=== PATIENT | male | born 1960 | race Caucasian/White ===

== ENCOUNTER 2017-03-17 05:55 | Day surgery (SDC) | payer OTHER ==
[2017-03-16 09:51] VITALS: BMI 29.4
[2017-03-17] MEDS ORDERED: Phenylephrine 2.5% Opht Soln OS SCH (06:00)
[2017-03-17] MEDS ORDERED: Tetracaine 0.5% Ophth (OR ONLY) ONE (08:10)
[2017-03-17] MEDS ORDERED: Tobramycin/Dexamethasone (Tobradex) Opth Sol (2.5 ml) ONE (08:10)
[2017-03-17] MEDS: Lactated Ringer's 1,000 ML IV ONE (08:24)
[2017-03-17] MEDS: Lactated Ringer's 500 ML IV ONE (08:25)
[2017-03-17] MEDS ORDERED: Propofol 10 mg/ml Inj (20 ML) ONE (08:39)
[2017-03-17] MEDS: Lidocaine 2% Inj (20ml) ONE (08:48)
[2017-03-17] MEDS: Hyaluronidase Human, Recombi 150 U/ML VIAL ONE (08:48)
[2017-03-17] MEDS: MethylPREDNISolone 40 mg Vial ONE (08:55)
[2017-03-17] MEDS: Gentamicin 80 mg/2mL Inj. ONE (09:00)
[2017-03-17] MEDS: Lidocaine 2% w Epi 1:100,000 Inj IJ ONE (09:01)
[2017-03-17] MEDS: Tobramycin/Dexamethasone OPHT OINT ONE (09:03)
[2017-03-17 09:34] VITALS: PULSE 72
[2017-03-17 10:02] LABS: GLUCOSE,POC 130 mg/dL (65-110)
[2017-03-17 11:29] VITALS: BP 132/89; RESP 16; TEMP 98.5; O2SAT 98
--- NOTE | 2017-03-18 21:49 | OP ---
PROCEDURE DATE: 03/17/2017 PREOPERATIVE DIAGNOSIS: Double pterygium, left eye. POSTOPERATIVE DIAGNOSIS: Double pterygium, left eye. PROCEDURES PERFORMED: 1. Pterygium removal. 2. Conjunctival reconstruction with amniotic membrane graft. SURGEON: Vikram Terrell MD TYPE OF ANESTHESIA: Retrobulbar block. COMPLICATIONS: None. DESCRIPTION OF PROCEDURE: The patient was brought to the operating room and properly identified. For anesthesia gave IV sedation and a retrobulbar block was given. The patient was then prepped and draped in the usual sterile fashion. Attention was then turned to the left eye. Sitting superiorly, there was noted to be 2 pterygiums, 1 nasal and 1 temporal onto the cornea. Lidocaine with epinephrine was injected under both pterygiums. Both removed with a 0.12 and Trent scissors. A alexander bur was used for the corneal portion. Hemostasis was maintained with cautery. Once that was complete an autograft was removed from the superior conjunctiva and glued into place. Temporally and nasally amniotic membrane was graft was then cut into the appropriate size and also then glued into place. Subconjunctival antibiotics were then given. Eye was covered by a soft patch and shield.. The patient was returned to the recovery room in stable condition. Vikram Terrell MD
== END 2017-03-17 10:10 | disposition home or self-care (01) ==
LOC: C.SDS 05:55
PROVIDERS: ATTEND Ophthalmology
DX: H11.002 Unspecified pterygium of left eye (principal)

== ENCOUNTER 2017-10-02 16:44 | Emergency (ER) | payer OTHER ==
[2017-10-02 16:44] VITALS: BMI 29.4
[2017-10-02 17:07] VITALS: RESP 20
--- NOTE | 2017-10-02 17:48 | C.PDOC ---
History Of Present Illness Patient is a 57 y/o male who presents to the ED BIBA with daughter s/p slipping and falling down 4 wet steps at 3pm today. Patient was ambulatory at the scene per EMS. Per daughter, patient complains of back, right lateral ribs, right arm , and right leg pain. No other physical complaints at this time. Time Seen by Provider: 10/02/17 17:04 Chief Complaint (Nursing): Back Pain History Per: Patient, EMS, Family (daughter) History/Exam Limitations: no limitations Onset/Duration Of Symptoms: Hrs Current Symptoms Are (Timing): Still Present Quality Of Discomfort: Unable To Describe, "Pain" Previous Symptoms: denies: Neck Pain Associated Symptoms: denies: Incontinence, New Weakness, New Numbness Exacerbating Factor(s): Turning, Movement, Sitting Recent travel outside of the [place]: No Past Medical History Reviewed: Historical Data, Nursing Documentation, Vital Signs Vital Signs: Last Vital Signs Temp 98 F 10/02/17 19:26 Pulse 76 10/02/17 19:26 Resp 20 10/02/17 19:26 BP 151/70 H 10/02/17 19:26 Pulse Ox 99 10/02/17 19:26 - Medical History PMH: Gall Bladder Disease, HTN, Hypercholesterolemia Denies: Chronic Kidney Disease Surgical History: Cholecystectomy Family History: States: No Known Family Hx - Social History Hx Tobacco Use: No Hx Alcohol Use: No Hx Substance Use: No - Immunization History Hx Tetanus Toxoid Vaccination: No Hx Influenza Vaccination: No Hx Pneumococcal Vaccination: No Review Of Systems Except As Marked, All Systems Reviewed And Found Negative. Cardiovascular: Positive for: Chest Pain (right lateral ) Musculoskeletal: Positive for: Back Pain, Leg Pain (right) Physical Exam - Physical Exam Appears: Well, Non-toxic, No Acute Distress Skin: Normal Color, Warm, No Rash Head: Atraumatic, Normacephalic Eye(s): bilateral: Normal Inspection Oral Mucosa: Moist Throat: No Erythema, No Exudate Neck: Normal ROM, No Midline Cervical Tenderness, No Paracervical Tenderness, Supple Chest: Symmetrical, Tenderness (right lateral ribs) Cardiovascular: Rhythm Regular, No Friction Rub, No Murmur Respiratory: Normal Breath Sounds, No Rales, No Rhonchi, No Stridor, No Wheezing Gastrointestinal/Abdominal: Soft, No Tenderness Back: No Vertebral Tenderness, Paraspinal Tenderness (parathoracic and paralumbar) Extremity: Normal ROM (full range of motion to right hip), Capillary Refill (< 2 sec), No Swelling, Other (c) Pulses: Left Radial: Normal, Right Radial: Normal Neurological/Psych: Oriented x3, Normal Speech, Normal Cranial Nerves, Normal Motor, Normal Sensation Gait: Steady ED Course And Treatment O2 Sat by Pulse Oximetry: 97 (on RA) Pulse Ox Interpretation: Normal Medical Decision Making Medical Decision Making: LS spine XR, right humerus XR, and CXR ordered. Flexeril and Toradol administered. On re-exam, the patient reports improvement of symptoms. Lungs are CTA, heart is RRR, abdomen is soft, non-tender and tolerating PO well. Ambulatory in the ED with steady gait. Follow up with the medical doctor/clinic within 1-2 days. Return if worsened. Disposition - Disposition [facility] Disposition: HOME/ ROUTINE Disposition Time: 19:12 Condition: GOOD Additional Instructions: Follow up with the medical doctor/clinic within 1-2 days. Return if worsened. Prescriptions: Cyclobenzaprine [Cyclobenzaprine HCl] 10 mg PO BID #14 tab Ibuprofen [Motrin] 600 mg PO TID #21 tab Instructions: Contusion (DC) Forms: [facility] (Georgian) - POA Present On Arrival: None - Clinical Impression Clinical Impression: Contusion of back, Chest injury - Scribe Statement The provider has reviewed the documentation as recorded by the Scribe Henna Cisneros All medical record entries made by the Scribe were at my direction and personally dictated by me. I have reviewed the chart and agree that the record accurately reflects my personal performance of the history, physical exam, medical decision making, and the department course for this patient. I have also personally directed, reviewed, and agree with the discharge instructions and disposition.
[2017-10-02 19:30] VITALS: BP 151/70; PULSE 76; TEMP 98
[2017-10-02 23:41] VITALS: O2SAT 97
--- NOTE | 2017-10-03 08:53 | RAD ---
PROCEDURE: Radiographs of the Lumbar Spine. HISTORY: low back pain, fall, injury COMPARISON: No prior. FINDINGS: BONES: Normal alignment. No listhesis. No fracture. DISC SPACES: Unremarkable. OTHER FINDINGS: None. IMPRESSION: Unremarkable radiographs of the lumbar spine.
--- NOTE | 2017-10-03 08:54 | RAD ---
PROCEDURE: Radiographs of the right humerus. HISTORY: arm injury, pain COMPARISON: None. FINDINGS: BONES: Normal. No fracture or focal lesion. SOFT TISSUES: Normal. OTHER FINDINGS: None. IMPRESSION: Normal radiographs of right humerus.
--- NOTE | 2017-10-03 08:55 | RAD ---
HISTORY: chest injury, pain to right lateral ribs COMPARISON: 03/14/2017 TECHNIQUE: Chest PA and lateral FINDINGS: LUNGS: No active pulmonary disease. PLEURA: No significant pleural effusion identified. No pneumothorax apparent. CARDIOVASCULAR: Normal. OSSEOUS STRUCTURES: No significant abnormalities. VISUALIZED UPPER ABDOMEN: Normal. OTHER FINDINGS: None. IMPRESSION: No active disease.
== END 2017-10-02 19:30 | disposition home or self-care (01) ==
LOC: C.ER 16:44
DX: S30.0XXA Contusion of lower back and pelvis, initial encounter (principal); S29.9XXA Unspecified injury of thorax, initial encounter; W10.9XXA Fall (on) (from) unspecified stairs and steps, initial encounter; E78.00 Pure hypercholesterolemia, unspecified; I10 Essential (primary) hypertension
CPT/HCPCS: 71046; 72100; 73060; 96372; 99284; J1885

== ENCOUNTER 2018-04-09 17:01 | Emergency (ER) | payer SELFPAY ==
[2018-04-09 17:01] VITALS: BMI 28.0
[2018-04-09] MEDS ORDERED: Sodium Chloride 0.9% 1,000 ML IV ONE ×2 (17:35→18:09)
--- NOTE | 2018-04-09 17:36 | C.PDOC ---
History Of Present Illness 57 year old male presents to the emergency department with complaints of feeling generalized weakness with increased thirst and urination, as well as diffuse abdominal pain for the last 1-2 hours. Patient reports a PMHx of DM II, HTN, HLD. He states that he has been compliant with his Metformin. Patient denies chest pain, shortness of breath, fever, vomiting, diarrhea. Time Seen by Provider: 04/09/18 17:22 Chief Complaint (Nursing): Abdominal Pain History Per: Patient History/Exam Limitations: no limitations Onset/Duration Of Symptoms: Hrs Current Symptoms Are (Timing): Still Present Severity: Moderate Quality Of Discomfort: Other (weakness) Associated Symptoms: Urinary Symptoms (increased thirst, frequent urination). denies: Fever, Vomiting, Diarrhea, Chest Pain, Other (shortness of breath) Past Medical History Reviewed: Historical Data, Nursing Documentation, Vital Signs Vital Signs: Last Vital Signs Temp 99.0 F 04/09/18 17:15 Pulse 93 H 04/09/18 17:15 Resp 19 04/09/18 17:15 BP 129/77 04/09/18 17:15 Pulse Ox 95 04/09/18 17:15 - Medical History PMH: Gall Bladder Disease, HTN, Hypercholesterolemia Surgical History: Cholecystectomy Family History: States: No Known Family Hx - Social History Hx Tobacco Use: No Hx Alcohol Use: No Hx Substance Use: No - Immunization History Hx Tetanus Toxoid Vaccination: No Hx Influenza Vaccination: No Hx Pneumococcal Vaccination: No Review Of Systems Constitutional: Positive for: Weakness. Negative for: Fever Cardiovascular: Negative for: Chest Pain, Palpitations Respiratory: Negative for: Cough, Shortness of Breath Gastrointestinal: Positive for: Abdominal Pain, Other (increased thirst). Negative for: Nausea, Vomiting, Diarrhea Genitourinary: Positive for: Frequency Physical Exam - Physical Exam Appears: Well, Non-toxic, In Acute Distress (in mild discomfort ) Skin: Normal Color, Warm, Dry Head: Normacephalic Eye(s): bilateral: Normal Inspection (injected sclera B/L ) Oral Mucosa: Moist Lips: Other (dry, chapped) Neck: Supple Cardiovascular: Rhythm Regular Respiratory: Normal Breath Sounds, No Rales, No Rhonchi, No Wheezing Gastrointestinal/Abdominal: Bowel Sounds, Soft, Tenderness (mild diffuse TTP, (- ) McBurney's, (-) Fernandez's), No Guarding, No Rebound Back: Normal Inspection, No CVA Tenderness Extremity: No Pedal Edema Neurological/Psych: Oriented x3 ED Course And Treatment - Laboratory Results Result Diagrams: 04/09/18 17:42 ECG: Interpreted By Me, Viewed By Me ECG Rhythm: Sinus Rhythm ECG Interpretation: Abnormal Interpretation Of ECG: Normal sinus rhythm at 95bpm, normal axis, q-waves II, III, AVF, no acute ST/T wave changes. Rate From EC O2 Sat by Pulse Oximetry: 95 (ra) Pulse Ox Interpretation: Normal Progress Note: Blood work, EKG, UA ordered and reviewed. Patient given IV NS bolus x 2, IV insulin 6 units. Disposition - Disposition Disposition Time: 18:10 Condition: STABLE Forms: [facility] (Guinean) - Clinical Impression Clinical Impression: Hyperglycemia - Scribe Statement The provider has reviewed the documentation as recorded by the Scribe (Edilson Francisco) Provider Attestation: All medical record entries made by the Scribe were at my direction and personally dictated by me. I have reviewed the chart and agree that the record accurately reflects my personal performance of the history, physical exam, medical decision making, and the department course for this patient. I have also personally directed, reviewed, and agree with the discharge instructions and disposition. Physician Patient Turnover Patient Signed Over To: Vera Mcneill Handoff Comments: pending labs, reassessment
[2018-04-09 17:47] LABS: BASO % 0.7 % (0.0-2.0); EOS # 0.1 K/uL (0.0-0.7); EOS % 1.6 % (0.0-4.0); HEMOGLOBIN 14.4 g/dL (12.0-18.0); LYMPH # 1.4 K/uL (1.0-4.3); LYMPH % 26.2 % (20.0-40.0); MEAN CELL VOLUME 87.4 fL (80.0-94.0); MEAN CORPUSCULAR HEMOGLOBIN 29.9 pg (27.0-31.0); MEAN CORPUSCULAR HGB CONC 34.2 g/dL (33.0-37.0); MEAN PLATELET VOLUME 8.4 fL (7.2-11.7); MONO # 0.5 K/uL (0.0-0.8); MONO % 8.6 % (0.0-10.0); NEUT # 3.3 K/uL (1.8-7.0); NEUT % 62.9 % (50.0-75.0); RBC 4.82 Mil/uL (4.40-5.90); WHITE BLOOD COUNT 5.3 K/uL (4.8-10.8)
[2018-04-09 18:02] LABS: VENOUS BLOOD GAS BASE EXCESS 1.5 mmol/L (0.0-2.0); VENOUS BLOOD GAS PCO2 43 mmHg (40-60); VENOUS BLOOD GAS PO2 46 mm/Hg (30-55)
[2018-04-09] MEDS ORDERED: (Novolin R) Insulin Human Regular 100 units/ml vial IVP ONE (18:09)
[2018-04-09 18:11] LABS: ALB/GLOB RATIO 1.5 (1.0-2.1); ALT/SGPT 20 U/L (21-72); AST/SGOT 20 U/L (17-59); BLOOD UREA NITROGEN 23 mg/dL (9-20); CALCIUM 9.2 mg/dl (8.6-10.4); GFR NON-AFRICAN AMERICAN > 60; LIPASE 517 U/L (23-300)
[2018-04-09 18:15] LABS: URINE BILIRUBIN NEGATIVE (NEGATIVE); URINE BLOOD NEGATIVE (NEGATIVE); URINE CLARITY Clear (Clear); URINE COLOR Straw (YELLOW); URINE GLUCOSE (UA) 3+ mg/dL (Normal); URINE LEUKOCYTE ESTERASE NEG Leu/uL (Negative); URINE PROTEIN NEGATIVE (NEGATIVE); URINE UROBILINOGEN NORMAL mg/dL (0.2-1.0)
[2018-04-09] MEDS ORDERED: (Novolin R) Insulin Human Regular 100 units/ml vial ONE (18:18)
[2018-04-09] MEDS ORDERED: Iodixanol 320 MG/ML 100 ML BOTTLE IV ONE (18:54)
[2018-04-09 20:59] VITALS: BP 129/80; PULSE 89; RESP 16; TEMP 98.2; O2SAT 96
--- NOTE | 2018-04-10 09:15 | CT ---
Date of service: 04/09/2018 PROCEDURE: CT Abdomen and Pelvis with contrast HISTORY: elevated lipase, hyperglycemia COMPARISON: None. TECHNIQUE: Contrast dose: 100 ML OMNIPAQUE 300 Radiation dose: Total exam DLP = 383.84 mGy-cm. This CT exam was performed using one or more of the following dose reduction techniques: Automated exposure control, adjustment of the mA and/or kV according to patient size, and/or use of iterative reconstruction technique. FINDINGS: LOWER THORAX: Unremarkable. LIVER: Unremarkable. No gross lesion or ductal dilatation. GALLBLADDER AND BILE DUCTS: Status post cholecystectomy. Mild dilatation of the common bile duct up to 9 mm diameter, consistent with prior cholecystectomy. . PANCREAS: Unremarkable. No gross lesion or ductal dilatation. No peripancreatic fluid or inflammatory change noted. SPLEEN: Unremarkable. ADRENALS: Unremarkable. No mass. KIDNEYS AND URETERS: Mild bilateral hydronephrosis and hydroureter. VASCULATURE: Unremarkable. No aortic aneurysm. BOWEL: Unremarkable. No obstruction. No gross mural thickening. APPENDIX: Normal appendix. PERITONEUM: Unremarkable. No free fluid. No free air. LYMPH NODES: Unremarkable. No enlarged lymph nodes. BLADDER: Distended bladder. No evidence of mural thickening. REPRODUCTIVE: Normal prostate BONES: No acute fracture. OTHER FINDINGS: None. IMPRESSION: Mild bilateral hydroureteronephrosis. Distended urinary bladder. No evidence of acute pancreatitis. Otherwise unremarkable. The preliminary findings for this examination were reported by [employer] at 7:40 p.m. on 04/09/2018. There is concurrence of this report with the preliminary findings.
--- NOTE | 2018-04-10 09:33 | RAD ---
Chest x-ray single frontal view History: Shortness of breath. Comparison: 10/02/2017 Findings: Mild venous congestion. Tortuous aorta. Top normal heart size. Degenerative changes in the spine. Air underneath the left hemidiaphragm likely represents gastric bubble. Impression: Mild venous congestion.
== END 2018-04-09 20:59 | disposition home or self-care (01) ==
LOC: C.ER 17:01
DX: E11.65 Type 2 diabetes mellitus with hyperglycemia (principal); Z79.84 Long term (current) use of oral hypoglycemic drugs; R10.84 Generalized abdominal pain
CPT/HCPCS: 71045; 74177; 80053; 81001; 82009; 82803; 82948; 83690; 85025; 96361; 96374; 99285; J7030; Q9967

== ENCOUNTER 2018-05-18 08:56 | Day surgery (SDC) | payer SELFPAY ==
[2018-05-02 10:57] VITALS: BMI 28.0
[~2018-05-18 08:56] MED LIST: Lactated Ringer's 500 ML IV ONE; Phenylephrine 2.5% Opht Soln OD SCH
[2018-05-18] MEDS ORDERED: Lactated Ringer's 500 ML IV ONE (09:58)
[2018-05-18] MEDS ORDERED: Tobramycin/Dexamethasone OPHT OINT ONE (10:49)
[2018-05-18] MEDS ORDERED: Tetracaine 0.5% Ophth (OR ONLY) ONE (10:49)
[2018-05-18] MEDS ORDERED: Carbachol 0.01% IO ONE (10:49)
[2018-05-18] MEDS ORDERED: Chondroitin/Hyaluronate Opth Syringe KIT (0.55 ml-0.5 ml) IO ONE (10:49)
[2018-05-18] MEDS ORDERED: Hyaluronidase Human, Recombi 150 U/ML VIAL ONE (10:49)
[2018-05-18] MEDS ORDERED: Povidone Iodine Ophthalmic 5% Soln ONE (10:50)
[2018-05-18] MEDS ORDERED: Lidocaine 2% MPF (5 ml) Inj ONE (10:54)
[2018-05-18] MEDS ORDERED: Lidocaine/Epinephrine 1% 1:100000 10 ML IJ ONE (11:11)
[2018-05-18] MEDS ORDERED: Propofol 10 mg/ml Inj (20 ML) ONE (11:35)
[2018-05-18] MEDS ORDERED: Phenylephrine 10 mg/ml Inj ONE (11:49)
[2018-05-18 12:25] VITALS: RESP 16
[2018-05-18 13:04] VITALS: BP 93/65; PULSE 69; TEMP 97.8; O2SAT 98
--- NOTE | 2018-05-18 23:55 | OP ---
PROCEDURE DATE: 05/18/2018 PREOPERATIVE DIAGNOSIS: Peripheral progressive pterygium, right eye. POSTOPERATIVE DIAGNOSIS: Peripheral progressive pterygium, right eye. OPERATIVE PROCEDURE: Pterygium excision with autograft. ATTENDING SURGEON: Vikram Terrell MD ANESTHESIA: Retrobulbar block. COMPLICATIONS: None. ESTIMATED BLOOD LOSS: 0.5 mL DESCRIPTION OF PROCEDURE: The patient was brought to the operating room and properly identified. Anesthesia staff gave IV sedation. The patient was prepped and draped in the usual sterile fashion. Retrobulbar block was given to the right eye with no complications, sitting superiorly. Lidocaine with epinephrine was injected into the pterygium. The pterygium was then removed with 0.12 Trent scissor. There was noted to be extensive scarring with this pterygium, but it was completely removed. Bharti justin was used to smooth out the corneal portion. Hemostasis was maintained with cautery. Mitomycin C was then placed on the bare sclera 0.02% one and half minutes and then washed with BSS solution. An autograft was then created from the superior conjunctivae, it was glued into place using Tisseel glue. Once this was completed, subconjunctival antibiotics and steroids were then given. The eye was covered with soft patch and shield. The patient was returned to the recovery room in stable condition. Vikram Terrell MD
== END 2018-05-18 12:58 | disposition home or self-care (01) ==
LOC: C.OPSURG 08:56 → C.SDS 08:56
PROVIDERS: ATTEND Ophthalmology
DX: H11.053 Peripheral pterygium, progressive, bilateral (principal)
CPT/HCPCS: 65426; 82948; 88304; J2370; J2704; J3470; J7120; J9280

== ENCOUNTER 2018-10-02 10:30 | Emergency (ER) | payer OTHER ==
[2018-10-02 10:36] VITALS: BMI 27.2
[2018-10-02 10:38] VITALS: BP 154/94; PULSE 79; RESP 18; TEMP 98.6; O2SAT 98
[2018-10-02] MEDS ORDERED: Tdap Vaccine 0.5 ml Vial (10-64 yrs) IM ONE ×2 (10:45→11:05)
[2018-10-02] MEDS ORDERED: Tmp-Smz 800 mg-160 mg DS Tab PO STA (10:45)
--- NOTE | 2018-10-02 10:52 | C.PDOC ---
History Of Present Illness 58 y/o male presents to the ED for evaluation of a finger laceration sustained 2 days ago. Patient was taking out the garbage on Tuesday afternoon, when a nail in the trash cut his right index finger. No other fevers or complaints. No sensory changes to the hand. Time Seen by Provider: 10/02/18 10:41 Chief Complaint (Nursing): Abnormal Skin Integrity History Per: Patient History/Exam Limitations: no limitations Onset/Duration Of Symptoms: Days (x 2) Current Symptoms Are (Timing): Still Present Location Of Injury: Right: Hand Past Medical History Reviewed: Historical Data, Nursing Documentation, Vital Signs Vital Signs: Last Vital Signs Temp 98.6 F 10/02/18 10:35 Pulse 79 10/02/18 10:35 Resp 18 10/02/18 10:35 BP 154/94 H 10/02/18 10:35 Pulse Ox 98 10/02/18 10:35 - Medical History PMH: Gall Bladder Disease, HTN, Hypercholesterolemia Denies: Chronic Kidney Disease Surgical History: Cholecystectomy Family History: States: No Known Family Hx - Social History Hx Tobacco Use: No Hx Alcohol Use: No Hx Substance Use: No - Immunization History Hx Tetanus Toxoid Vaccination: Yes (pt states "about 2-3 years ago") Hx Influenza Vaccination: No Hx Pneumococcal Vaccination: No Review Of Systems Except As Marked, All Systems Reviewed And Found Negative. Constitutional: Negative for: Fever, Chills Musculoskeletal: Positive for: Hand Pain Skin: Positive for: Lesions (laceration to right 2nd digit) Neurological: Negative for: Weakness, Numbness, Incoordination Physical Exam - Physical Exam Appears: Well, Non-toxic, No Acute Distress Skin: Warm, Dry Head: Atraumatic, Normacephalic Eye(s): bilateral: Normal Inspection Chest: Symmetrical Respiratory: No Accessory Muscle Use, Other (Speaking in full sentences) Extremity: Normal ROM (of all digits), Capillary Refill (< 2 sec), No Deformity, No Swelling, Other (0.5 cm laceration to the volar aspect of right 2nd digit) Pulses: Left Radial: Normal, Right Radial: Normal Neurological/Psych: Oriented x3, Normal Motor, Normal Sensation ED Course And Treatment O2 Sat by Pulse Oximetry: 98 (RA) Pulse Ox Interpretation: Normal Medical Decision Making Medical Decision Making: Initial Plan: - Wound care and laceration repair - Tetanus booster updated - 1 tab Bactrim DS given >2 days s/p innjury will allow wound to close without repair. no eo of infection able to flex finger no swelling no clincal concern for tenosynovitis. advise outpt fu and return precauions Disposition - Disposition Referrals: Yazmin Carrasco MD [Staff Provider] - Disposition: HOME/ ROUTINE Disposition Time: 11:00 Condition: GOOD Additional Instructions: return to er with worsening symptoms or concerns. please see specialist. Prescriptions: Sulfamethoxazole/Trimethoprim [Bactrim DS 800 mg-160 mg] 1 tab PO BID #14 tab Instructions: Wound Care Forms: [facility] (Chadian) Print Language: MOHAWK - Clinical Impression Clinical Impression: Laceration - Scribe Statement The provider has reviewed the documentation as recorded by the Sidneyibwang Brito Provider Attestation: All medical record entries made by the Sidneyibwang were at my direction and personally dictated by me. I have reviewed the chart and agree that the record accurately reflects my personal performance of the history, physical exam, medical decision making, and the department course for this patient. I have also personally directed, reviewed, and agree with the discharge instructions and disposition.
[2018-10-02] MEDS ORDERED: Tmp-Smz 800 mg-160 mg DS Tab ONE (11:04)
[2018-10-02] MEDS ORDERED: Bacitracin 500 Units/gm Oint Foilpak UD ONE (11:14)
== END 2018-10-02 11:15 | disposition home or self-care (01) ==
LOC: C.ER 10:30
DX: S61.210A Laceration without foreign body of right index finger without damage to nail, initial encounter (principal); W45.0XXA Nail entering through skin, initial encounter; Z23 Encounter for immunization

== ENCOUNTER 2018-11-30 07:12 | Day surgery (SDC) | payer OTHER ==
[2018-11-29 13:45] VITALS: BMI 24.4
[~2018-11-30 07:12] MED LIST changes: +Hyaluronidase Human, Recombi 150 U/ML VIAL ONE; +Lidocaine 2% MPF (5 ml) Inj ONE; +MethylPREDNISolone 40 mg Vial ONE; -Phenylephrine 2.5% Opht Soln OD SCH; +Phenylephrine 2.5% Opht Soln OS SCH; +Tetracaine 0.5% Ophth (OR ONLY) ONE
[2018-11-30] MEDS ORDERED: Lactated Ringer's 1,000 ML IV ONE (08:05)
[2018-11-30] MEDS ORDERED: Gentamicin 80 mg/2mL Inj. ONE (08:21)
[2018-11-30] MEDS ORDERED: Midazolam 2 MG/2 ML VIAL ONE (09:16)
[2018-11-30 10:16] VITALS: O2SAT 97
[2018-11-30 11:42] VITALS: RESP 15
[2018-11-30 13:12] VITALS: BP 105/67; PULSE 63; TEMP 97.6
--- NOTE | 2018-11-30 19:50 | OP ---
PROCEDURE DATE: 11/30/2018 PREOPERATIVE DIAGNOSIS: Double pterygium, left eye. POSTOPERATIVE DIAGNOSIS: Likely double recurrent pterygium, left eye. ATTENDING: Vikram Terrell MD TYPE OF ANESTHESIA: Retrobulbar block. COMPLICATIONS: None. ESTIMATED BLOOD LOSS: 0.5 mL. DESCRIPTION OF PROCEDURE: The patient was brought to the operating room and properly identified. The patient was then prepped and draped in the usual sterile fashion. He had already been given retrobulbar block with no complications. Attention was turned superiorly, there were noted to be two what appeared to be recurrent pterygiums, nasal and temporal. They were both injected with lidocaine and epinephrine. They were both removed using a 0.12 and Trent scissors. Once they were removed, a alexander justin was used to smooth out the corneal portion. Hemostasis was maintained with cautery. Superior conjunctiva grafts were then created and glued into place using Tisseel glue. Before this was done, Mitomycin C 0.02% was placed on the bare sclera for 1.5 minutes and washed the area with two large syringes of BSS. Then, two autografts were removed from the superior conjunctiva and glued into place using Tisseel glue. Once that was done, topical antibiotics and steroids were given. His eye was covered with soft patch and shield and the patient was returned to the recovery room in stable condition. Vikram Terrell MD
== END 2018-11-30 12:35 | disposition home or self-care (01) ==
LOC: C.SDS 07:12
PROVIDERS: ATTEND Ophthalmology
DX: H11.032 Double pterygium of left eye (principal); E11.9 Type 2 diabetes mellitus without complications; I10 Essential (primary) hypertension
CPT/HCPCS: 65426; 82948; 88304; J1580; J2250; J2920; J3010; J3470; J7120; J9280